=== PATIENT | male | born 1995 | race African-American/Black ===

== ENCOUNTER 2017-01-27 23:51 | Emergency (ER) | payer SELFPAY ==
[~2017-01-27] VITALS: Ht 190.5 cm; Wt 75.9 kg
[2017-01-27] MEDS ORDERED: CODEINE ELIXIR PO (23:59)
[2017-01-27] MEDS ORDERED: ALPR1TAB7 PO (23:59)
[2017-01-28] MEDS ORDERED: HydrOXYzine PAMOATE 25 MG CAPSULE PO ONE (00:45)
[2017-01-28] MEDS ORDERED: NAPROXEN 250 MG TABLET PO ONE (01:00)
[2017-01-28 01:27] VITALS: BP 142/81
== END 2017-01-28 01:29 | disposition home or self-care (01) ==
LOC: EMS 23:52
DX: F41.9 Anxiety disorder, unspecified (principal); F19.90 Other psychoactive substance use, unspecified, uncomplicated
CPT/HCPCS: 99284